=== PATIENT | female | born 1950 | race Caucasian/White ===

== ENCOUNTER 2016-09-12 03:07 | Emergency (ER) | payer SELFPAY ==
[~2016-09-12] VITALS: Ht 165.1 cm; Wt 72.7 kg
[~2016-09-12 03:07] MED LIST: BACLOFEN10 MG PO; BENADRYL25 MG PO; NAPROSYN500 MG PO; NAPROXEN375 MG PO
[2016-09-12 04:02] LABS: HEMATOCRIT 38.4 % (37.0-47.0); HEMOGLOBIN 13.8 g/dl (12.0-16.0); IMMATURE GRANULOCYTES 0.5 % (0.0-1.0); MEAN CELL VOLUME 85.3 fL CALC (80.0-100.0); MEAN CORPUSCULAR HGB 30.7 pG CALC (26.0-32.0); MEAN CORPUSCULAR HGB CONC 35.9 g/L CALC (32.0-36.0); NEUT# 1.43 thou/uL (2.00-7.15); RED BLOOD COUNT 4.5 mill/uL (4.20-5.60); RED CELL DISTRI WIDTH 12.2 % (11.5-15.5)
[2016-09-12 04:11] LABS: ALBUMIN 4.5 g/dL (3.2-5.0); ALKALINE PHOSPHATASE 138 u/l (38-126); ANION GAP 18 (6-22 (CALC)); BILIRUBIN, TOTAL 0.9 mg/dL (0.0-1.4); BUN 14 mg/dL (8-23); BUN/CREATININE RATIO 22 (12-20 (CALC)); CALCIUM 9.5 mg/dL (8.4-10.2); CARBON DIOXIDE 25 mmol/l (22-30); CHLORIDE 99 mmol/l (95-108); CREATININE 0.6 mg/dL (0.5-1.0); GFR > 60 ML/MIN (>=60 (CALC)); GFR FOR AFR.AMER. > 60 ML/MIN (>=60 (CALC)); GLUCOSE 318 mg/dL (82-115); POTASSIUM 4.2 mmol/l (3.5-5.1); SGOT/AST 44 u/l (9-36); SGPT/ALT 51 u/l (11-66); SODIUM 138 mmol/l (137-146); TOTAL PROTEIN 7.7 g/dL (6.3-8.2)
[2016-09-12 04:46] LABS: URINE BILIRUBIN - DIPSTICK NEGATIVE (NEGATIVE); URINE BLOOD DIPSTICK NEGATIVE (NEGATIVE); URINE CLARITY CLEAR; URINE COLOR YELLOW; URINE GLUCOSE - DIPSTICK >=1000 mg/dL (NEGATIVE); URINE KETONE NEGATIVE (NEGATIVE); URINE LEUK ESTERASE NEGATIVE (NEGATIVE); URINE NITRITE - DIPSTICK NEGATIVE (Negative); URINE PH 5.5 (4.5-8.0); URINE PROTEIN - DIPSTICK TRACE mg/dL (NEG-TRACE); URINE UROBILINOGEN - DIPSTICK 0.2 E.U./dL (0.2)
[2016-09-12] MEDS ORDERED: TRAMADOL HYDROC50 MG PO (05:09)
[2016-09-12] MEDS ORDERED: FLEXERIL PO (05:09)
[2016-09-12 05:32] VITALS: BP 150/78
== END 2016-09-12 05:30 | disposition home or self-care (01) | DRG 552 ==
LOC: ED 03:07
PROVIDERS: Emergency Medicine
DX: M54.5 Low back pain (principal)

== ENCOUNTER 2017-02-09 07:11 | Emergency (ER) | payer BC ==
[~2017-02-09] VITALS: Ht 165.1 cm; Wt 70.0 kg
[~2017-02-09 07:11] MED LIST changes: +FLEXERIL PO; +TRAMADOL HYDROC50 MG PO
[2017-02-09] MEDS ORDERED: EC-NAPROSYN500 MG PO (07:40)
[2017-02-09] MEDS ORDERED: TRAMADOL HYDROC50 MG PO (07:40)
[2017-02-09] MEDS ORDERED: FLEXERIL PO (07:40)
[2017-02-09 07:55] VITALS: BP 184/114
== END 2017-02-09 08:03 | disposition home or self-care (01) | DRG 552 ==
LOC: ED 07:11
DX: M54.6 Pain in thoracic spine (principal)